=== PATIENT | female | born 1955 | race Caucasian/White ===

== ENCOUNTER → 2017-07-03 10:08 | Outpatient (CLI) | payer OTHER, SELFPAY ==
--- NOTE | 2017-07-03 10:19 | HPBI_ITS ---
MAMMOGRAPHY - BILATERAL SCREENING REASON FOR EXAM: Female, 62 years old. Routine annual screening examination. PERTINENT HISTORY: Remote right excisional breast biopsy. TECHNIQUE: Digital bilateral breast kitty (3D mammographic acquisition) in the CC and MLO projections. 2-D mediolateral oblique (MLO) and craniocaudad (CC) views of both breasts were obtained. CAD: Full Field Digital Mammography with Computer Added Detection was performed. COMPARISON: No comparison mammograms available at this time. If any prior films become available, an addendum to this report can be generated. FINDINGS: Breast Composition: There are scattered areas of fibroglandular density. There are no dominant masses or suspicious calcifications. Multiple small well-defined nodules are seen in the axillary regions bilaterally suggestive of small benign appearing axillary lymph nodes. No other significant abnormalities are identified. HPBI/SCREENING MAMM (CAD), BILAT IMPRESSION: Negative screening mammogram. Yearly followup mammogram recommended. (A) ASSESSMENT CATEGORY: BIRADS Category 2: Benign. A letter regarding these results will be sent to the patient by the facility within 30 days. Approximately 10% of breast cancers are not detected by mammography. A normal mammogram should not delay biopsy of a clinically suspicious abnormality. [id number] Electronically Signed: Reji Hopson MD at 15:28 EDT Tel [phone], Service support ,
[2017-07-03 11:27] LABS: Absolute Lymphocyte Count 3.11 X10^3/ul (0.83-4.51); Absolute Neutrophil Count 5.8 X10^3/uL (2.0-7.7); Basophil# 0.06 X10^3/uL; Basophil% 0.6 % (0-1); Eosinophil# 0.15 X10^3/uL; Eosinophils% 1.5 % (0-5); Hematocrit 41.5 % (37-47); Hemoglobin 13.6 g/dl (12.0-15.0); Lymphocyte # 3.11 X10^3/ul (4.0); Lymphocyte % 31.5 % (19-41); Mean Corp Hgb Conc 32.8 g/gl (32-36); Mean Corpuscular Hgb 28.3 pg (27.0-32.0); Mean Corpuscular Volume 86.5 fL (81-99); Mean Platelet Vol. 10.7 fl (6.2-12.0); Monocyte# 0.76 X10^3/uL; Monocyte% 7.7 % (0-10); Neutrophil # 5.79 X10^3/uL (2.7-7.7); Neutrophil % 58.6 % (47-70); Platelet Count 263 K/mm3 (150-450); RBC Distribution Width CV 14.1 % (11.6-14.6); RBC Distribution Width SD 44.2 fl (35.1-43.9); White Blood Count 9.9 K/mm3 (4.4-11.0)
[2017-07-03 11:29] LABS: POSITIVE COUNT NO; POSITIVE DIFFERENTIAL NO; POSITIVE MORPHOLOGY NO
[2017-07-03 11:50] LABS: ALB/GLOB Ratio 1.1 RATIO (0.9-2.4); AST(SGOT) 20 U/L (15-37); Alanine Aminotransfer ALT/SGPT 18 U/L (13-56); Alkaline Phosphatase 104 U/L (45-117); Anion Gap 6 (5-15); BUN 13 mg/dL (7-18); BUN/Creat Ratio 14.7 RATIO (10-20); Calcium,Total 8.9 mg/dL (8.5-10.1); Chloride 104 mmol/L (98-107); Cholesterol 217 mg/dL (200); Creatinine, Serum 0.88 mg/dL (0.55-1.02); EST Glomerular Filtration Rate 69 mL/min (>60); Est Glom Filt Rate - Afr Amer 84 mL/min (>60); Globulin 3.8 g/dL (2.2-4.2); Glucose 90 mg/dL (74-106); High Density Lipoprotein 63 mg/dL; Potassium 4.4 mmol/L (3.5-5.1); Protein, Total 7.8 g/dL (6.4-8.2); Sodium Level 139 mmol/L (136-145); Triglycerides 100 mg/dL; Very Low Density Lipoprotein 20 mg/dL (5-40)
[2017-07-04 08:30] LABS: Vitamin D,25 Hydroxy 27.6 ng/mL (29.95-100.01)
== END ==
PROVIDERS: Family Provider Family Medicine; PCP Family Medicine; Visit Provider Family Medicine
DX: Z12.31 Encounter for screening mammogram for malignant neoplasm of breast (principal); Z00.00 Encounter for general adult medical examination without abnormal findings; E55.9 Vitamin D deficiency, unspecified
CPT/HCPCS: 36415; 77063; 77067; 80053; 80061; 82306; 85025

== ENCOUNTER → 2017-08-08 08:09 | Outpatient (CLI) | payer OTHER, SELFPAY ==
--- NOTE | 2017-08-08 08:15 | BD_ITS ---
STUDY: DUAL ENERGY X-RAY ABSORPTIOMETRY / DXA REASON FOR EXAM: Female, 62 years old. Early menopause. Loss of height. TECHNIQUE: Bone Mineral Density (BMD) measurements of lumbar spine and bilateral hips were obtained. COMPARISON: None. FINDINGS: Lumbar Spine (L1-L4): g/cm2 (0.769) / T-score (-3.3) / Z-score (-2.1) Findings are suggestive of osteoporosis with a high fracture risk. Left Femur Total: g/cm2 (0.673) / T-score (-2.7) / Z-score (-1.7) Left Femoral Neck: g/cm2 (0.700) / T-score (-2.4) / Z-score (-1.2) Right Femur Total: g/cm2 (0.641) / T-score (-2.9) / Z-score (-2.0) Right Femoral Neck: g/cm2 (0.747) / T-score (-2.1) / Z-score (0.9) BD/Dexa Bone Density Study IMPRESSION: The patient is considered osteoporotic as outlined below according to World Jay Organization (WHO) criteria with a high fracture risk. Reference Information: The T-score is the number of standard deviations above or below the standard which is normal for young adults at their peak bone mineral density. The World Health Organization (WHO) interprets the T-scores as follows: Above -1 Normal bone density Between -1 and -2.5 Osteopenia Equal to / or below -2.5 Osteoporosis As a practical clinical guideline, osteopenia may be graded as follows: Mild -1 through -1.5 Moderate -1.6 through -2.0 Severe -2.1 through -2.4 The Z-score is the number of standard deviations above or below age-matched controls. A Z-score of less than -1.5 would be considered abnormal. References: 1. NIH Osteoporosis and Related Bone Diseases http://www.osteo.org 2. International Society for Clinical Densitometry http://www.iscd.org 3. National Osteoporosis Foundation http://www.nof.org Electronically Signed: Reji Hopson MD at 13:28 EDT Tel [phone], Service support ,
== END ==
PROVIDERS: Family Provider Family Medicine; PCP Family Medicine; Visit Provider Family Medicine
DX: M81.0 Age-related osteoporosis without current pathological fracture (principal)
CPT/HCPCS: 77080

== ENCOUNTER → 2017-10-20 14:01 | Outpatient (CLI) | payer OTHER, SELFPAY ==
--- NOTE | 2017-10-20 14:09 | RAD_ITS ---
STUDY: X-RAY - RIGHT KNEE REASON FOR EXAM: Female, 62 years old. RIGHT KNEE SWELLING X SEVERAL MONTHS PAIN ENTIRE KNEE NKI TECHNIQUE: 4 view(s) of the knee. COMPARISON: None. FINDINGS: Normal visualized distal femur. Normal visualized proximal tibia and fibula. Normal proximal tibiofibular articulation. Normal medial femorotibial compartment. Normal lateral femorotibial compartment. Normal patellofemoral articulation. The soft tissue structures are unremarkable. RAD/Knee 4 or More Views IMPRESSION: Normal x-ray examination of the knee. Electronically Signed: Arik Dominguez MD at 16:30 EDT , Service support ,
== END ==
PROVIDERS: Family Provider Family Medicine; PCP Family Medicine; Visit Provider Family Medicine
DX: M17.11 Unilateral primary osteoarthritis, right knee (principal)
CPT/HCPCS: 73564

== ENCOUNTER → 2018-07-10 14:35 | Outpatient (CLI) | payer OTHER, SELFPAY ==
[2018-07-10 16:12] LABS: Absolute Lymphocyte Count 3.43 X10^3/ul (0.83-4.51); Absolute Neutrophil Count 3.9 X10^3/uL (2.0-7.7); Basophil# 0.08 X10^3/uL; Eosinophil# 0.24 X10^3/uL; Eosinophils% 2.9 % (0-5); Hematocrit 40.3 % (37-47); Lymphocyte # 3.43 X10^3/ul (4.0); Lymphocyte % 40.8 % (19-41); Mean Corp Hgb Conc 32.3 g/gl (32-36); Mean Corpuscular Hgb 27.8 pg (27.0-32.0); Mean Corpuscular Volume 86.3 fL (81-99); Mean Platelet Vol. 10.9 fl (6.2-12.0); Monocyte# 0.77 X10^3/uL; Monocyte% 9.2 % (0-10); Neutrophil # 3.87 X10^3/uL (2.7-7.7); Platelet Count 263 K/mm3 (150-450); RBC Distribution Width CV 13.8 % (11.6-14.6); RBC Distribution Width SD 43.7 fl (35.1-43.9); Red Blood Count 4.67 M/mm3 (4.2-5.4); White Blood Count 8.4 K/mm3 (4.4-11.0)
[2018-07-10 16:20] LABS: POSITIVE COUNT NO; POSITIVE DIFFERENTIAL NO; POSITIVE MORPHOLOGY NO
[2018-07-10 16:43] LABS: Vitamin D,25 Hydroxy 44.1 ng/mL (29.95-100.01)
[2018-07-10 16:44] LABS: ALB/GLOB Ratio 1.3 RATIO (0.9-2.4); AST(SGOT) 20 U/L (15-37); Alanine Aminotransfer ALT/SGPT 16 U/L (13-56); Albumin, Serum 4.3 g/dL (3.2-5.0); Alkaline Phosphatase 97 U/L (45-117); Anion Gap 5 (5-15); BUN 8 mg/dL (7-18); BUN/Creat Ratio 8.7 RATIO (10-20); Calcium,Total 8.7 mg/dL (8.5-10.1); Chloride 108 mmol/L (98-107); Cholesterol 204 mg/dL (200); Creatinine, Serum 0.92 mg/dL (0.55-1.02); EST Glomerular Filtration Rate 66 mL/min (>60); Est Glom Filt Rate - Afr Amer 80 mL/min (>60); Free T3 3.1 pg/mL (2.18-3.98); Globulin 3.4 g/dL (2.2-4.2); Glucose 86 mg/dL (74-106); High Density Lipoprotein 68 mg/dL; Iron 115 ug/dL (50-170); Potassium 3.9 mmol/L (3.5-5.1); Protein, Total 7.7 g/dL (6.4-8.2); Sodium Level 142 mmol/L (136-145); T4 Free Direct 1.18 ng/dL (0.76-1.46); Triglycerides 77 mg/dL; Very Low Density Lipoprotein 15 mg/dL (5-40)
== END ==
PROVIDERS: Family Provider Family Medicine; PCP Family Medicine; Visit Provider Family Medicine
DX: Z00.00 Encounter for general adult medical examination without abnormal findings (principal); E55.9 Vitamin D deficiency, unspecified; D64.9 Anemia, unspecified; E78.5 Hyperlipidemia, unspecified; R53.83 Other fatigue; Z51.81 Encounter for therapeutic drug level monitoring
CPT/HCPCS: 36415; 80053; 80061; 82306; 83540; 84439; 84443; 84481; 85025

== ENCOUNTER → 2018-07-18 10:37 | Outpatient (CLI) | payer OTHER, SELFPAY ==
--- NOTE | 2018-07-18 10:44 | BI_ITS ---
MAMMOGRAPHY - BILATERAL SCREENING REASON FOR EXAM: Female, 63 years old. Routine annual screening examination. PERTINENT HISTORY: Aunt with breast cancer. Remote right excisional breast biopsy. TECHNIQUE: Digital bilateral breast kitty (3D mammographic acquisition) in the CC and MLO projections. 2-D mediolateral oblique (MLO) and craniocaudad (CC) views of both breasts were obtained. CAD: Full Field Digital Mammography with Computer Added Detection was performed. COMPARISON: Comparison is made with prior examination dated July 03, 2017. FINDINGS: Breast Composition: There are scattered areas of fibroglandular density. There are no dominant masses or suspicious calcifications. Stable small bilateral axillary lymph nodes. No other significant abnormalities are identified. There has been no significant change since the prior study. BI/SCREENING MAMM (CAD), BILAT IMPRESSION: Stable bilateral screening mammogram. Yearly follow-up mammogram recommended. (A) ASSESSMENT CATEGORY: BIRADS Category 2: Benign. A letter regarding these results will be sent to the patient by the facility within 30 days. Approximately 10% of breast cancers are not detected by mammography. A normal mammogram should not delay biopsy of a clinically suspicious abnormality. [id number] Electronically Signed: Reji Hopson, at 14:59 EDT , Service support ,
== END ==
PROVIDERS: Family Provider Family Medicine; PCP Family Medicine; Referring Provider Family Medicine; Visit Provider Family Medicine
DX: Z12.31 Encounter for screening mammogram for malignant neoplasm of breast (principal)
CPT/HCPCS: 77063; 77067

== ENCOUNTER → 2019-11-05 10:07 | Outpatient (CLI) | payer OTHER, SELFPAY ==
--- NOTE | 2019-11-05 10:11 | BI_ITS ---
MAMMOGRAPHY - BILATERAL SCREENING REASON FOR EXAM: Female, 64 years old. Routine annual screening examination. PERTINENT HISTORY: Aunt with breast cancer. TECHNIQUE: Digital bilateral breast maco (3D mammographic acquisition) in the CC and MLO projections. 2-D mediolateral oblique (MLO) and craniocaudad (CC) views of both breasts were obtained. CAD: Full Field Digital Mammography with Computer Added Detection was performed. COMPARISON: Comparison is made with prior study dated 07/18/2018 and 07/03/2017. FINDINGS: Breast Composition: There are scattered areas of fibroglandular density. There are no dominant masses or suspicious calcifications. Stable small benign appearing bilateral axillary lymph nodes. No other significant abnormalities are identified. There has been no significant change since the prior study. BI/SCREEN MAMM (CAD) W/MACO BILAT IMPRESSION: Stable bilateral screening mammogram. Yearly follow-up mammogram recommended. (A) ASSESSMENT CATEGORY: BIRADS Category 2: Benign. A letter regarding these results will be sent to the patient by the facility within 30 days. Approximately 10% of breast cancers are not detected by mammography. A normal mammogram should not delay biopsy of a clinically suspicious abnormality. [id number] Electronically Signed: Reji Hopson, at 11:19 EDT , Service support ,
[2019-11-05 13:38] LABS: Absolute Lymphocyte Count 3.21 X10^3/uL (0.83-4.51); Absolute Neutrophil Count 6.8 X10^3/uL (2.0-7.7); Basophil# 0.11 X10^3/uL; Eosinophil# 0.22 X10^3/uL; Hematocrit 42.9 % (37-47); Hemoglobin 13.6 g/dL (12.0-15.0); Lymphocyte # 3.21 X10^3/ul (4.0); Mean Corp Hgb Conc 31.7 g/dL (32-36); Mean Corpuscular Hgb 28.8 pg (27.0-32.0); Mean Corpuscular Volume 90.7 fL (81-99); Mean Platelet Vol. 10.9 fl (6.2-12.0); Monocyte# 0.75 X10^3/uL; Monocyte% 6.8 % (0-10); NRBC Flagged by Analyzer 0 % (0-5); Neutrophil # 6.76 X10^3/uL (2.7-7.7); Neutrophil % 60.9 % (47-70); Platelet Count 289 K/mm3 (150-450); RBC Distribution Width CV 12.9 % (11.6-14.6); RBC Distribution Width SD 42.8 fl (35.1-43.9); Red Blood Count 4.73 M/mm3 (4.2-5.4); White Blood Count 11.1 K/mm3 (4.4-11.0)
[2019-11-05 14:02] LABS: Vitamin D,25 Hydroxy 39.8 ng/mL
[2019-11-05 14:07] LABS: AST(SGOT) 21 U/L (15-37); Alanine Aminotransfer ALT/SGPT 20 U/L (13-56); Alkaline Phosphatase 99 U/L (45-117); Anion Gap 4 (5-15); BUN 8 mg/dL (7-18); Calcium,Total 9.2 mg/dL (8.5-10.1); Chloride 106 mmol/L (98-107); Cholesterol 248 mg/dL (200); Creatinine, Serum 0.99 mg/dL (0.55-1.02); EST Glomerular Filtration Rate 60 mL/min (>60); Est Glom Filt Rate - Afr Amer 73 mL/min (>60); Free T3 2.8 pg/mL (2.18-3.98); Globulin 4.1 g/dL (2.2-4.2); Glucose 91 mg/dL (74-106); High Density Lipoprotein 56 mg/dL; Potassium 4.3 mmol/L (3.5-5.1); Protein, Total 8.1 g/dL (6.4-8.2); Sodium Level 141 mmol/L (136-145); Thyroid Stim Hormone (TSH) 1.49 uIU/mL (0.358-3.74); Triglycerides 144 mg/dL; Very Low Density Lipoprotein 29 mg/dL (5-40)
[2019-11-07 13:38] LABS: HPV Reflexed? NOT INDICATED
== END ==
PROVIDERS: PCP Family Medicine; Referring Provider Family Medicine; Visit Provider Family Medicine
DX: Z12.31 Encounter for screening mammogram for malignant neoplasm of breast (principal); Z01.419 Encounter for gynecological examination (general) (routine) without abnormal findings; E55.9 Vitamin D deficiency, unspecified; E78.5 Hyperlipidemia, unspecified; R53.83 Other fatigue; Z51.81 Encounter for therapeutic drug level monitoring
CPT/HCPCS: 36415; 77063; 77067; 80053; 80061; 82306; 84443; 84481; 85025; 88175; G0145

== ENCOUNTER → 2020-11-10 11:35 | Outpatient (CLI) | payer OTHER, SELFPAY ==
--- NOTE | 2020-11-10 11:40 | BI_ITS ---
MAMMOGRAPHY - BILATERAL SCREENING REASON FOR EXAM: Female, 65 years old. Routine annual screening examination. PERTINENT HISTORY: Aunt with breast cancer. TECHNIQUE: Digital bilateral breast maco (3D mammographic acquisition) in the CC and MLO projections. 2-D mediolateral oblique (MLO) and craniocaudad (CC) views of both breasts were obtained. CAD: Full Field Digital Mammography with Computer Added Detection was performed. COMPARISON: Comparison is made with prior study dated 11/05/2019 and 07/18/2018. FINDINGS: Breast Composition: There are scattered areas of fibroglandular density. There are no dominant masses or suspicious calcifications. Stable small benign-appearing bilateral axillary lymph nodes. No other significant abnormalities are identified. There has been no significant change since the prior study. BI/SCRN MAMM (CAD)W/MACO BILAT IMPRESSION: Stable bilateral screening mammogram. Yearly follow-up mammogram recommended. (A) ASSESSMENT CATEGORY: BIRADS Category 2: Benign. A letter regarding these results will be sent to the patient by the facility within 30 days. Approximately 10% of breast cancers are not detected by mammography. A normal mammogram should not delay biopsy of a clinically suspicious abnormality. [id number] Electronically Signed: Reji Hopson MD at 13:28 EDT , Service support ,
== END ==
PROVIDERS: PCP Family Medicine; Referring Provider Family Medicine; Visit Provider Family Medicine
DX: Z12.31 Encounter for screening mammogram for malignant neoplasm of breast (principal)
CPT/HCPCS: 77063; 77067

== ENCOUNTER → 2021-08-01 | Outpatient (CLI) | payer OTHER, SELFPAY ==
[2021-08-01 17:53] LABS: Absolute Lymphocyte Count 3.27 X10^3/uL (0.83-4.51); Absolute Neutrophil Count 12.2 X10^3/uL (2.0-7.7); Basophil# 0.09 X10^3/uL; Basophil% 0.5 % (0-1); Eosinophil# 0.05 X10^3/uL; Eosinophils% 0.3 % (0-5); Hematocrit 42.7 % (37-47); Hemoglobin 14.3 g/dL (12.0-15.0); Lymphocyte # 3.27 X10^3/ul (0.83-4.51); Lymphocyte % 19.8 % (19-41); Mean Corp Hgb Conc 33.5 g/dL (32-36); Mean Corpuscular Volume 83.7 fL (81-99); Monocyte% 4.8 % (0-10); NRBC Flagged by Analyzer 0 % (0-5); Neutrophil # 12.21 X10^3/uL (2.7-7.7); Neutrophil % 74.1 % (47-70); Platelet Count 333 K/mm3 (150-450); RBC Distribution Width CV 13.4 % (11.6-14.6); RBC Distribution Width SD 41.5 fl (35.1-43.9); White Blood Count 16.5 K/mm3 (4.4-11.0)
[2021-08-01 17:54] LABS: Vitamin B12 353 pg/mL (211-911)
[2021-08-01 17:57] LABS: Hemoglobin A1c 5.6 % (3.8-5.6)
[2021-08-01 18:06] LABS: Erythrocyte Sedimentation Rate 36 mm/hr (0-30)
[2021-08-01 18:12] LABS: BUN 19 mg/dL (7-18); Creatinine, Serum 1.83 mg/dL (0.55-1.02); Glucose 112 mg/dL (74-106)
[2021-08-01 18:13] LABS: AST(SGOT) 21 U/L (15-37); Alanine Aminotransfer ALT/SGPT 21 U/L (13-56); Albumin, Serum 4.1 g/dL (3.2-5.0); Alkaline Phosphatase 95 U/L (45-117); Anion Gap 8 (5-15); BUN/Creat Ratio 10.4 RATIO (10-20); Calcium,Total 9.1 mg/dL (8.5-10.1); Chloride 97 mmol/L (98-107); EST Glomerular Filtration Rate 30 mL/min (>60); Est Glom Filt Rate - Afr Amer 36 mL/min (>60); Globulin 4.3 g/dL (2.2-4.2); Potassium 2.8 mmol/L (3.5-5.1); Protein, Total 8.4 g/dL (6.4-8.2); Sodium Level 133 mmol/L (136-145); Thyroid Stim Hormone (TSH) 1.37 uIU/mL (0.358-3.74)
== END | disposition home or self-care (01) ==
LOC: MTLAB 15:50
PROVIDERS: PCP Family Medicine; Referring Provider Family Medicine; Visit Provider Family Medicine
DX: R51.9 Headache, unspecified (principal); R73.01 Impaired fasting glucose; R53.83 Other fatigue
CPT/HCPCS: 36415; 80053; 82607; 83036; 84443; 85025; 85652

== ENCOUNTER → 2021-08-25 | Outpatient (CLI) | payer OTHER, SELFPAY ==
[2021-08-25 10:52] LABS: Mucous, Urine 0 SEEN /hpf (<or=2+)
[2021-08-25 11:48] LABS: Hematocrit 41.2 % (37-47); Hemoglobin 13.6 g/dL (12.0-15.0); Mean Corpuscular Hgb 28.1 pg (27.0-32.0); Mean Corpuscular Volume 85.1 fL (81-99); Mean Platelet Vol. 9.9 fl (6.2-12.0); Platelet Count 357 K/mm3 (150-450); RBC Distribution Width CV 14.2 % (11.6-14.6); RBC Distribution Width SD 43.6 fl (35.1-43.9); Red Blood Count 4.84 M/mm3 (4.2-5.4); White Blood Count 11.6 K/mm3 (4.4-11.0)
[2021-08-25 11:49] LABS: Color, Urine Yellow (Yellow); Glucose, Dipstick Normal (Normal); Ketone-Dipstick Negative (Negative); Leukocyte Esterase-Dipstick 25 /ul (Negative); Nitrite-Dipstick Negative (Negative); Occult Blood-Urine 25 /ul (Negative); Protein-Dipstick 100 mg/dl (Negative); Specific Gravity, Urine 1.015 (1.002-1.030); Urine Bilirubin Dipstick Negative (Negative); Urine Clarity Sl. Cloudy (Clear); Urine Urobilinogen Normal (Normal)
[2021-08-25 11:58] LABS: Bacteria RARE /hpf (None Seen); Red Blood Cells-Urine 0-5 SEEN /hpf (0-5); Squamous Epithelial Cells - UA 0-5 SEEN /hpf (5-10); White Blood Cells 0-5 SEEN /hpf (0-5)
[2021-08-25 12:09] LABS: Protein, Urine (Random) 179.6 mg/dL (<11.9); Protein:Creat Ratio 1371 mg/g CRE (0-200)
[2021-08-25 12:29] LABS: Vitamin D,25 Hydroxy 31.4 ng/mL
[2021-08-25 12:44] LABS: PTHIN 156.5 pg/mL (18.4-80.1)
[2021-08-25 12:52] LABS: Albumin, Serum 3.9 g/dL (3.2-5.0); BUN 21 mg/dL (7-18); BUN/Creat Ratio 11.1 RATIO (10-20); Calcium,Total 9.4 mg/dL (8.5-10.1); Chloride 97 mmol/L (98-107); Creatinine, Serum 1.89 mg/dL (0.55-1.02); EST Glomerular Filtration Rate 28 mL/min (>60); Est Glom Filt Rate - Afr Amer 34 mL/min (>60); Glucose 98 mg/dL (74-106); Phosphorus 2.9 mg/dL (2.5-4.9); Potassium 2.6 mmol/L (3.5-5.1); Sodium Level 135 mmol/L (136-145)
[2021-08-26 20:45] LABS: Anti-dsDNA Ab <1 IU/mL (0-9)
[2021-08-30 16:08] LABS: Cytoplasmic Ab (C-ANCA) <1:20 titer (Neg:<1:20); PROEL- A/G Ratio 0.9 (0.7-1.7); PROEL- Albumin 3.5 g/dL (2.9-4.4); PROEL- Alpha-1 Globulin 0.4 g/dL (0.0-0.4); PROEL- Alpha-2 Globulin 1.1 g/dL (0.4-1.0); PROEL- Beta Globulin 1.3 g/dL (0.7-1.3); PROEL- Gamma Globulin 1.1 g/dL (0.4-1.8); PROEL- Globulin, Total 3.9 g/dL (2.2-3.9); PROEL- TOTAL PROTEIN 7.4 g/dL (6.0-8.5)
[2021-08-31 09:31] LABS: Complement C3 196 mg/dL (82-167); Perinuclear Ab (P-ANCA) <1:20 titer (Neg:<1:20)
== END | disposition home or self-care (01) ==
LOC: MTLAB 10:34
PROVIDERS: PCP Family Medicine; Referring Provider Internal Medicine Nephrology; Visit Provider Internal Medicine Nephrology
DX: N18.32 Chronic kidney disease, stage 3b (principal)
CPT/HCPCS: 36415; 80069; 81001; 82306; 82570; 83970; 84156; 84165; 85027; 86160; 86225; 86256

== ENCOUNTER → 2021-09-01 | Outpatient (CLI) | payer OTHER, SELFPAY ==
--- NOTE | 2021-09-01 14:10 | US_ITS ---
STUDY: RENAL ULTRASOUND - COMPLETE REASON FOR EXAM: Female, 66 years old. CKD TECHNIQUE: Ultrasound evaluation of the kidneys was performed with real-time and static bueno-scale imaging. COMPARISON: None. FINDINGS: RIGHT KIDNEY: with mild renal atrophy. The right kidney measures 7.2 cm x 3.7 cm x 3.5 cm. There is diffuse thinning of the renal cortex. The renal cortex measures 0.7 cm. There is a 1.1 cm x 1.6 x 1.2 cm cyst in the inferior pole. There are no right renal calculi. There is no right hydronephrosis. DISTAL RIGHT URETER: There is non-visualization of the distal right ureter. There is no demonstrated right ureterovesical junction calculus. There is no demonstrated right ureteral jet. LEFT KIDNEY: Normal location of the left kidney, which is normal in size. The left kidney measures 10.9 cm x 4.8cm x 5.9 cm. There is a normal cortex of the left kidney. The renal cortex measures 1.3 cm. There is no left renal mass or cyst. There are no left renal calculi. There is no left hydronephrosis. DISTAL LEFT URETER: There is non-visualization of the distal left ureter. There is no demonstrated left ureterovesical junction calculus. There is a visualized left ureteral jet. BLADDER: The distended urinary bladder has a volume of 193.4 ml. There is a normal wall thickness of the distended urinary bladder. There is no demonstrated mass within the urinary bladder. There are no demonstrated bladder calculi. US/Kidney and Bladder IMPRESSION: Mild right renal atrophy. Electronically Signed: Reji Hopson MD at 15:27 EDT ,
== END | disposition home or self-care (01) ==
LOC: US 14:04
PROVIDERS: PCP Family Medicine; Visit Provider Internal Medicine Nephrology
DX: N18.32 Chronic kidney disease, stage 3b (principal)
CPT/HCPCS: 76770

== ENCOUNTER → 2021-09-01 | Outpatient (CLI) | payer OTHER, SELFPAY ==
[2021-09-01 13:24] LABS: Anion Gap 7 (5-15); BUN 18 mg/dL (7-18); BUN/Creat Ratio 10.3 RATIO (10-20); Calcium,Total 9.4 mg/dL (8.5-10.1); Chloride 107 mmol/L (98-107); Creatinine, Serum 1.75 mg/dL (0.55-1.02); EST Glomerular Filtration Rate 31 mL/min (>60); Est Glom Filt Rate - Afr Amer 38 mL/min (>60); Glucose 74 mg/dL (74-106); Potassium 4.6 mmol/L (3.5-5.1); Sodium Level 137 mmol/L (136-145)
== END | disposition home or self-care (01) ==
PROVIDERS: PCP Family Medicine; Referring Provider Internal Medicine Nephrology; Visit Provider Internal Medicine Nephrology
DX: E87.6 Hypokalemia (principal)
CPT/HCPCS: 36415; 80048

== ENCOUNTER 2021-09-27 17:13 | Emergency (ER) | payer OTHER, SELFPAY ==
[2021-09-27 17:15] VITALS: PULSE 94; RESP 17; TEMP 37; O2SAT 97; BMI 24.3
--- NOTE | 2021-09-27 17:48 | CT_ITS ---
STUDY: CT BRAIN WITHOUT CONTRAST REASON FOR EXAM: Female, 66 years old. Technologist Notes Other, MIGRAINE X 1 DAY,DIZZINESS AND CONFUSION headache TECHNIQUE: Transaxial CT imaging of the brain was performed without administration of intravenous contrast material. Individualized dose optimization techniques were used for this CT. COMPARISON: None FINDINGS: Normal calvarium. Normal soft tissues. Normal size ventricles and extra-axial spaces for the patient''s age. There are areas of decreased attenuation within the white matter tracts of the supratentorial brain, consistent with microvascular disease changes. Normal basal ganglia and thalami. Normal brainstem. Normal cerebellum. There is no intracranial hemorrhage. There are no findings of an acute ischemic infarction. Degenerative changes of the mandibular condyles. ASPECTS 10 CT/Brain/Head without Contrast IMPRESSION: There are no acute intracranial findings. Electronically Signed: Arik Dominguez MD at 18:28 EDT ,
--- NOTE | 2021-09-27 17:51 | EX.ED.VIS.HA ---
HPI History of Present Illness Chief Complaint: Headache Informant: patient Narrative Narrative: Patient states she is here to get a CAT scan. Patient has a history of migraines intermittently throughout her life. But they are not a regular event. She states she got what was a typical migraine at the very end of July. She states it was the first hot day. She was outside gardening. She was drinking sweet tea. She really did not sweat and came in and felt very dehydrated. Later that evening she started to get a headache that slowly developed. She had it for about 3 days and then it got better. But since then she has been getting off-and-on headaches mostly in the left side of her head. She had some nausea and vomited once the first at night but never since. She states 1 time she stood up quickly and had to step back 3 times to catch her balance but is not having balance issues. She is not having urinary issues. No fevers chills. She has not had any trauma to her head. No tearing or runny nose. No numbness tingling weakness. There is family history of migraines and her daughters all get migraines and cluster headaches. She has been seeing her doctor about these. She has an appointment in about 9 days. This is for recheck. She takes Tylenol for the headaches which does help. There are some days she does not have much of a headache and others she does. No specific pattern to them. She was told if they keep going on she should come to the ER and get a CAT scan. [facility] Medical History (Updated 09/27/21 @ 21:[address] Richi Camarena MD) Depression Hypertension Hypokalemia Migraines Home Medications alprazolam 1 mg tablet 1 tab PO TID PRN Anxiety 09/27/21 [History Last Taken Unknown] amlodipine 5 mg tablet 5 mg PO DAILY #30 tabs 09/27/21 [Rx Last Taken Unknown] citalopram 20 mg tablet 20 tab PO DAILY 09/27/21 [History Last Taken Unknown] Allergy/AdvReac Type Severity Reaction Status Date / Time No Known Allergies Allergy Verified 09/27/21 17:23 Social History Smoking Status: Current every day smoker tobacco type: cigarettes ROS ROS ED Constitutional Constitutional ED: Denies chills, fever(s) or sweats Eyes Eyes: Reports other Details: No visual changes. ; Denies blurry vision, change in vision or diplopia ENT ENT ED: Denies rhinorrhea or sore throat Cardiovascular Cardiovascular: Denies chest pain or palpitations Respiratory/Chest Respiratory/Chest: Denies cough or dyspnea Gastrointestinal Gastrointestinal: Reports other Details: No routine nausea and vomiting with these. She had that the first day only when she was out in the heat. ; Denies nausea or vomiting Genitourinary Genitourinary ED: Reports other Details: No incontinence. ; Denies urinary frequency Musculoskeletal Musculoskeletal: Denies arthralgias, myalgias or neck pain Integumentary Denies rash Neurologic Neurologic: Reports headache(s); Denies paresthesias or weakness Endocrine Endocrinology: Denies polydipsia or polyuria Hematologic/Lymphatic Hematologic/Lymphatic: Denies easy bleeding or easy bruising Allergic/Immunologic Allergic/Immunologic ED: Denies urticaria EXAM Physical Exam Const Vital Signs: 09/27/21 17:15 09/27/21 17:57 09/27/21 18:28 Temperature 98.6 F Temperature Source Temporal Pulse Rate 94 56 L Respiratory Rate 17 18 Blood Pressure 223/117 H 205/104 H Blood Pressure Mean 152 137 Pulse Ox 97 96 Oxygen Delivery Method Room Air Room Air 09/27/21 19:56 09/27/21 20:21 Temperature Temperature Source Pulse Rate 66 68 Respiratory Rate 15 15 Blood Pressure 190/94 H 204/96 H Blood Pressure Mean 126 132 Pulse Ox 98 98 Oxygen Delivery Method Room Air Room Air Positive well nourished and well developed Constitutional Narrative: Patient is a very detailed informant. She knows the exact day of the week where her initial sometimes happened and when she had the unsteadiness and fell backwards onto her buttock. A General Appearance ED: well developed and NAD HEENT Reports normocephalic HEENT Narrative: No temporal artery tenderness. She states sometimes touching the side of her head helps the headache when she gets it. No rhinorrhea. No excessive tearing. Negative for temporal artery tenderness Eyes PERRL and EOMs intact bilaterally Eyes Narrative: No lid lag. Range of motion is normal in both eyes. Neck no meningeal signs and no JVD Resp normal respiratory effort and clear to auscultation bilaterally Cardio regular rate and regular rhythm GI non-tender Palpation: soft Back/Spine no CVA tenderness Extremity normal to inspection and full ROM General Extremety ED: Negative for edema or tenderness General Extremity: Negative for edema Neuro oriented x3 and CN's II-XII intact bilaterally Neuro Narrative: No discoordination or instability Sensorium / Orientation: awake and alert Speech: speech normal Gait (Neuro): normal gait Psych mental status grossly normal Skin Lesions: no lesions Rashes: no rashes MDM MDM MDM Narrative Medical decision making narrative: Since blood pressure has come down from 223/117 to about 195/95. I think this is an appropriate drop at this time. She states the headache is almost completely gone. She just feels a very tiny amount in the front of her head but overall feels better. She used to be on blood pressure meds and thinks it was a diuretic. She does not recall what it was. Her CT scan today shows no acute process. CBC is normal. Electrolytes show some mild elevation in creatinine and slightly low potassium but this is where she has been recently. She has an appointment with staff internist office based only on the first and her primary physician on the seventh. I will get her started on some blood pressure meds because I think this might be contributing significantly to her headache. We discussed reasons to return. I also explained that the staff internist office based only may very well change her meds or change her dosage. We will not start her at a real high dose. Lab Data Attestation: I reviewed the patient's lab results. Labs: Laboratory Results - last 24 hr 09/27/21 09/27/21 17:55 17:55 WBC 10.5 RBC 5.10 Hgb 14.2 Hct 43.1 MCV 84.5 MCH 27.8 MCHC 32.9 RDW Std Deviation 41.8 RDW Coeff of Ranjith 13.5 Plt Count 320 MPV 10.5 Immature Gran % (Auto) 0.200 Neut % (Auto) 62.2 Lymph % (Auto) 28.4 Mchenry % (Auto) 7.3 Eos % (Auto) 1.0 Baso % (Auto) 0.9 Absolute Neuts (auto) 6.5 Absolute Lymphs (auto) 2.98 Nucleated RBC % 0 Sodium 136 Potassium 3.4 L Chloride 99 Carbon Dioxide 31.0 Anion Gap 6 BUN 13 Creatinine 1.65 H Estim Creat Clear Calc 32.25 Est GFR (MDRD) Af Amer 40 L Est GFR (MDRD) Non-Af 33 L BUN/Creatinine Ratio 7.9 L Glucose 108 H Calcium 9.7 Radiography Diagnostic Testing: Clinical Impression(s) from Imaging Studies Brain CT 09/27/21 17:48 IMPRESSION: There are no acute intracranial findings. Electronically Signed: Arik Dominguez MD at 18:28 EDT Reading Location ID and State: [facility] / [place] , Service support , Discharge Plan Triage Chief Complaint: Headache ED Provider: Richi Camarena Dx/Rx/DC Orders Clinical Impression: Headache, Hypertension Instructions: ED Headache Unspecified, ED Hypertension, To Be Confirmed Prescriptions: New amlodipine 5 mg tablet 5 mg PO DAILY Qty: 30 0RF No Action alprazolam 1 mg tablet 1 tab PO TID PRN (Reason: Anxiety) citalopram 20 mg tablet 20 tab PO DAILY Primary Care Provider: Rand Velasco Referrals: Rand Velasco DO [Primary Care Provider] - Keep Gordy appointment Activity Restrictions/Additional Instructions: Keep the appointment with your kidney doctor on 30 September. Disposition Disposition: Home, Self Care
[2021-09-27 17:57] VITALS: BP 223/117
[2021-09-27 18:09] LABS: Absolute Lymphocyte Count 2.98 X10^3/uL (0.83-4.51); Absolute Neutrophil Count 6.5 X10^3/uL (2.0-7.7); Basophil# 0.09 X10^3/uL; Basophil% 0.9 % (0-1); Hematocrit 43.1 % (37-47); Hemoglobin 14.2 g/dL (12.0-15.0); Lymphocyte # 2.98 X10^3/ul (0.83-4.51); Lymphocyte % 28.4 % (19-41); Mean Corp Hgb Conc 32.9 g/dL (32-36); Mean Corpuscular Hgb 27.8 pg (27.0-32.0); Mean Corpuscular Volume 84.5 fL (81-99); Mean Platelet Vol. 10.5 fl (6.2-12.0); Monocyte# 0.77 X10^3/uL; Monocyte% 7.3 % (0-10); NRBC Flagged by Analyzer 0 % (0-5); Neutrophil # 6.54 X10^3/uL (2.7-7.7); Neutrophil % 62.2 % (47-70); Platelet Count 320 K/mm3 (150-450); RBC Distribution Width CV 13.5 % (11.6-14.6); RBC Distribution Width SD 41.8 fl (35.1-43.9); White Blood Count 10.5 K/mm3 (4.4-11.0)
[2021-09-27 18:18] LABS: Anion Gap 6 (5-15); BUN 13 mg/dL (7-18); BUN/Creat Ratio 7.9 RATIO (10-20); Calcium,Total 9.7 mg/dL (8.5-10.1); Chloride 99 mmol/L (98-107); Creatinine, Serum 1.65 mg/dL (0.55-1.02); EST Glomerular Filtration Rate 33 mL/min (>60); Est Glom Filt Rate - Afr Amer 40 mL/min (>60); Estimated Creatinine Clearance 32.25 ml/min; Glucose 108 mg/dL (74-106); Potassium 3.4 mmol/L (3.5-5.1); Sodium Level 136 mmol/L (136-145)
[2021-09-27] MEDS: Labetalol (Prefilled) 20 MG/4 ML IV (18:18)
[2021-09-27 18:28] VITALS: BP 205/104; PULSE 56; RESP 18; O2SAT 96
--- NOTE | 2021-09-27 19:12 | CM.ED ---
Social Work Note SW received referral for Mental Health - depression and lack of support system. ABELINO and Abi SAHA in to speak with pt. Pt states that she has had a lot of stress lately. Pt states that she has had migraines lately which started about a month ago. Pt states that she has a grandson, age 24, named Remington, that is special needs. Pt states that her grandson just found out that he has Thyroid Cancer and had radiation treatment. Pt states that Remington lives with his other grandparents. Pt states that Remington does not do well with other people. Pt states that while Remington was in the hospital, his grandparents blocked his mother, pt's daughter, from seeing him. Pt states that two years ago her daughter got a tubal and became septic. Pt states that her daughter almost . Pt states that her daughter's blocked her from seeing her daughter while she was in the hospital. Pt states that in March she sold her house that she had for 21 years to move into an apartment. Pt states that she is stressed about everything and worried about everything. Pt states that she does have history of depression. Pt states that she worked in [employer] and it was hell at work. Pt states that she lost her job due to their BS. Pt states that it has been a lot. Pt states that she os on her own and single and recently ended a relationship. Pt states that her daughter is filing with the state for Remington to be a [place] of the state, pt states that this hurts her putting Remington through that. Pt states that she feels alone. Pt states that she talks to her oldest daughter and see's her oldest daughter a lot of the time. Pt states that she has another daughter but she is and her is judgmental. Pt states she is also getting used to moving to a different place. Pt denied any current suicidal/homicidal thoughts. SW provided support to pt. Pt educated on [facility] and also was provided list of counselors through [facility]. Pt was informed that she can call [facility] if she wants to. Pt states that she does live in [place] so driving to [place] is kind of far. Pt denied additional needs or concerns at this time. Paula Rosas WOODWORK SALVAGE INSPECTOR, SETUP TECHNICIAN
[2021-09-27 19:56] VITALS: BP 190/94; PULSE 66; RESP 15; O2SAT 98
[2021-09-27 20:21] VITALS: BP 204/96; PULSE 68; RESP 15; O2SAT 98
[2021-09-27 21:52] VITALS: BP 199/101; PULSE 70; RESP 15; O2SAT 95
[2021-09-27] MEDS: amLODIPine 5 MG Tablet PO (21:52)
== END 2021-09-27 21:55 | disposition home or self-care (01) ==
PROVIDERS: Emergency Provider Emergency Medicine; PCP Family Medicine; Visit Provider Emergency Medicine
DX: R51.9 Headache, unspecified (principal); I10 Essential (primary) hypertension; F32.A Depression, unspecified; F17.210 Nicotine dependence, cigarettes, uncomplicated; Z79.899 Other long term (current) drug therapy; Z82.0 Family history of epilepsy and other diseases of the nervous system
CPT/HCPCS: 70450; 80048; 85025; 96374; 99284; J7030; A4216

== ENCOUNTER → 2021-09-30 | Outpatient (CLI) | payer OTHER, SELFPAY ==
[2021-10-14 06:07] LABS: Aldosterone, Serum 39.4 ng/dL (0.0-30.0)
[2021-10-14 08:33] LABS: ALDOSTERONE/RENIN RATIO 0.9 (0.0-30.0)
== END | disposition home or self-care (01) ==
LOC: LAB 12:27
PROVIDERS: PCP Family Medicine; Referring Provider Internal Medicine Nephrology; Visit Provider Internal Medicine Nephrology
DX: I12.9 Hypertensive chronic kidney disease with stage 1 through stage 4 chronic kidney disease, or unspecified chronic kidney disease (principal); N18.32 Chronic kidney disease, stage 3b
CPT/HCPCS: 36415; 82088; 84244

== ENCOUNTER → 2021-11-10 | Outpatient (CLI) | payer OTHER, SELFPAY ==
--- NOTE | 2021-11-10 08:19 | RDU_ITS ---
Reason For Study: chronic kidney disease Right Renal Artery Left Renal Artery Right renal artery ostium Left renal artery ostium 134.5/33.4 282.6/120.2 RSV/EDV. PSV/EDV. Right renal artery proximal Left renal artery proximal PSV/EDV 89.3/18.1 PSV/EDV. 240.2/51.8 . Right renal artery mid 69.2/27.2 Left renal artery mid 339.8/84.8 PSV/EDV. PSV/EDV . Right renal artery distal 61.9/25.4 Left renal artery distal 144.3/21.3 PSV/EDV. PSV/EDV. Right RAR 3.2. Left RAR 3.9. Right Renal Parenchyma Left Renal Parenchyma Upper Pole Medula 17.3/6.3 PSV/EDV. Left upper pole medulla 32.1/9.3 Right upper pole medulla EDR .37 . PSV/EDV . Right upper pole medulla R.I. .63 . Left upper pole medulla EDR .29 . Upper Khalif Cortx 12.0/5.4 PSV/EDV. Left upper pole medulla R.I. .71 . Right upper pole cortex EDR .45 . UP Cortex 15.7/6.6 PSV/EDV. Right upper pole cortex R.I. .55 . Left upper pole cortex EDR .42 . Right lower Pole medulla 13.1/4.3 Left upper pole cortex R.I. .58 . PSV/EDV . Left lower Pole medulla 41.3/10.2 Right lower pole medulla EDR .33 . PSV/EDV . Right lower pole medulla R.I. .67 . Left lower pole medulla EDR .25 . Lower Pole Cortex 7.5/4.7 PSV/EDV. Left lower pole medulla R.I. .75 . Right lower pole cortex EDR .62 . Lower Pole Cortx 15.7/6.6 PSV/EDV. Right lower pole cortex R.I. .38 . Left lower pole cortex EDR .42 . Right Renal Hilar Left lower pole cortex R.I. .58 . Right Hilar avg 25.9/8.9 PSV/EDV. Left Renal Hilar Right hilar acceleration time 130 LT Hilar avg 63.9/13.4 PSV/EDV . m/sec. Left hilar acceleration time 70 Right Renal Dimensions m/sec. Right kidney size 7.6 cm . Left Renal Dimensions Right cortical dimension 1.15 cm . Left kidney size 10.4 cm . Hypoechoic area on the lower pole Left cortical dimension 1.89 cm . measuring 1.31 x 1.36 cm. Aorta Proximal abdominal aorta 1.38 x 1.46 cm . Proximal abdominal aorta peak systolic velocity is 88.0 cm/sec . Distal abdominal aorta 1.0 x 1.12 cm . Distal abdominal aorta peak systolic velocity is 77.0 cm/sec . Normal renal veins bilat. Difficult study. VL/Renal Artery Duplex Ultrasound Interpretation Summary Dimensions of the intra-abdominal aorta appear normal, without evidence of aneu rysmal dilatation. Renal artery velocities are elevated bilaterally. The right acceleration time i s elevated . The left acceleration time is normal . The right renal-aortic ratio is normal. The left renal-aortic ratio is elevated. There is evidence of hemodynamically significant renal artery sternos is bilaterally, >60%. The right cortical dimension is normal. The left cortical dimension is increase d. The right kidney is small in size. The left kidney is normal in size. A hypoechoic structure is noted in the right lower pole, measuring 1.31 cm x 1.36 cm. This may represent a renal cyst. Clini rosas correlation is advised. Ordering Physician: Soumya Leija Performed By: Roman Garcia RVT
== END | disposition home or self-care (01) ==
LOC: CVS 08:15
PROVIDERS: PCP Family Medicine; Visit Provider Internal Medicine Nephrology
DX: I12.9 Hypertensive chronic kidney disease with stage 1 through stage 4 chronic kidney disease, or unspecified chronic kidney disease (principal); N18.32 Chronic kidney disease, stage 3b
CPT/HCPCS: 93975

== ENCOUNTER → 2023-06-06 | Outpatient (CLI) | payer MEDICARE, OTHER, SELFPAY ==
--- NOTE | 2023-06-06 16:17 | RAD_ITS ---
EXAM: XR CHEST, 2 decubitus VIEWS CLINICAL INDICATION: COUGH TECHNIQUE: Right and left decubitus views of the chest. COMPARISON: Two-view chest from same date FINDINGS: LUNGS AND PLEURAL SPACES: Decubitus views of the chest demonstrate a small left pleural effusion. No pneumothorax. HEART: Cardiac silhouette is mildly enlarged. MEDIASTINUM: Surgical changes of the mediastinum. Central airways and mediastinal contour are unremarkable. BONES/JOINTS: Unremarkable. No acute fracture. SOFT TISSUES: Unremarkable. RAD/Special CXR (Obl/Decub/A/L) IMPRESSION: Decubitus views of the chest demonstrate a small left pleural effusion. Electronically Signed: Arik Metcalf MD at 7:50 EST ,
--- NOTE | 2023-06-06 16:25 | RAD_ITS ---
EXAM: XR CHEST, 2 VIEWS CLINICAL INDICATION: COUGH TECHNIQUE: Frontal and lateral views of the chest. COMPARISON: No relevant prior studies available. FINDINGS: LUNGS AND PLEURAL SPACES: Small left pleural effusion. No pneumothorax. HEART: Mild enlargement of the cardiac silhouette. MEDIASTINUM: Surgical changes of the mediastinum. BONES/JOINTS: Degenerative changes of the spine and shoulders. No acute fracture. SOFT TISSUES: Unremarkable. RAD/Chest PA and Lateral IMPRESSION: Small left pleural effusion. Electronically Signed: Arik Metcalf MD at 23:38 EST ,
== END | disposition home or self-care (01) ==
LOC: RAD 16:13
PROVIDERS: Referring Provider Internal Medicine Pulmonary Disease; Visit Provider Internal Medicine Pulmonary Disease
DX: J90 Pleural effusion, not elsewhere classified (principal)
CPT/HCPCS: 71046

== ENCOUNTER → 2023-06-13 | Outpatient (CLI) | payer MEDICARE, OTHER, SELFPAY ==
--- NOTE | 2023-06-13 11:45 | RAD_ITS ---
PROCEDURE: Sniff test. DATE OF EXAMINATION: June 13, 2023. INDICATION: Female, 68 years old. Elevation of the left hemidiaphragm. Pleural effusion. FLUOROSCOPY TIME (if supplied): (18 seconds) minutes/seconds. 7.64 mGy. 2 images were obtained. 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 Electronically Signed: Reji Hopson MD at 14:38 EDT ,
== END | disposition home or self-care (01) ==
LOC: RAD 11:29
PROVIDERS: Referring Provider Internal Medicine Pulmonary Disease; Visit Provider Internal Medicine Pulmonary Disease
DX: J90 Pleural effusion, not elsewhere classified (principal)
CPT/HCPCS: 76000

== ENCOUNTER → 2023-11-19 | Outpatient (CLI) | payer MEDICARE, OTHER, SELFPAY ==
[2023-11-19 18:17] LABS: BNP,B-Type NATRIURETIC PEPTIDE 72.9 pg/mL (0-100)
== END | disposition home or self-care (01) ==
LOC: MTLAB 15:50
PROVIDERS: Referring Provider Internal Medicine Pulmonary Disease; Visit Provider Internal Medicine Pulmonary Disease
DX: R06.02 Shortness of breath (principal)
CPT/HCPCS: 36415; 83880

== ENCOUNTER → 2024-01-19 | Outpatient (CLI) | payer MEDICARE, OTHER, SELFPAY ==
--- NOTE | 2024-01-19 10:28 | CT_ITS ---
INDICATION: Fever and cough EXAMINATION: CT CHEST WITHOUT CONTRAST - CT Chest W/O Contrast Injection TECHNIQUE: Helically acquired images were obtained of the chest. A radiation dose optimization technique was used for this scan. IV Contrast dosage and agent: None. COMPARISON: None. FINDINGS: LUNGS, PLEURA AND LARGE AIRWAYS: Lung windows show the lungs to be normally expanded., There is fluid within the minor fissure but no organized infiltrate, chronic interstitial changes noted in the lower lung bettencourt with bibasilar atelectasis and loculated right pleural effusion. THYROID: No thyroid lesions. HEART AND PERICARDIUM: There has been a remote CABG VESSELS: Thoracic aorta is not dilated. MEDIASTINUM AND BECKY: No suspicious axillary, mediastinal or hilar adenopathy. There is a small retrocardiac hiatal hernia with thickening of the distal esophagus suggesting reflux esophagitis. UPPER ABDOMEN: Limited cuts through the upper abdomen show a catheter along the anterior edge of the liver and simple left renal cysts. BONES: No suspicious lytic or blastic abnormality. Bony structures show degenerative change CT/Chest without Contrast IMPRESSION: Chronic interstitial changes in both lung bettencourt with fluid within the right minor fissure, loculated right pleural effusion along with bibasilar atelectasis and interstitial changes. No organized infiltrate or suspicious noncalcified mass or nodule. Remote CABG Small hiatal hernia with evidence to suspect GE reflux Simple left renal cysts, no specific follow-up needed. Degenerative bony changes Electronically Signed: Nakul Rodriguez MD at 21:34 EDT ,
== END | disposition home or self-care (01) ==
PROVIDERS: Referring Provider Internal Medicine Pulmonary Disease; Visit Provider Internal Medicine Pulmonary Disease
DX: J98.6 Disorders of diaphragm (principal)
CPT/HCPCS: 71250

== ENCOUNTER → 2024-07-10 | Outpatient (CLI) | payer MEDICARE, OTHER, SELFPAY ==
--- NOTE | 2024-07-10 10:50 | RAD_ITS ---
EXAM: SNIFF TEST UNDER FLUOROSCOPIC GUIDANCE CLINICAL HISTORY: DISORDER OF DIAPHRAGM. HISTORY OF RIGHT HEMIDIAPHRAGM PARALYSIS FOLLOWING CARDIAC SURGERY. COMPARISON: NO RELEVANT PRIOR AVAILABLE. TECHNIQUE: Patient was placed on the fluoroscopic table in an AP upright position. Real-time imaging was performed during deep inspiration and expiration. Imaging was also performed during coughing. FINDINGS: Both hemidiaphragms show appropriate movement during inspiration and expiration. Slight elevation of the left hemidiaphragm is noted when compared to the right. No paradoxical motion was observed. No other significant findings. RAD/Chest Sniff Test Fluoro Only IMPRESSION: Normal movement of the hemidiaphragms during inspiration and expiration. Mild elevation of the left hemidiaphragm. Reading Location: [place] [id number]
== END | disposition home or self-care (01) ==
LOC: RAD 10:10
PROVIDERS: Referring Provider Internal Medicine Pulmonary Disease; Visit Provider Internal Medicine Pulmonary Disease
DX: J98.6 Disorders of diaphragm (principal)
CPT/HCPCS: 76000